=== PATIENT | male | born 1970 | race Caucasian/White ===

== ENCOUNTER → 2020-09-18 | Day surgery (SDC) | payer MEDICAID ==
[~2020-09-18] MED LIST: FentaNYL CITRATE PF 100 MCG/2 ML VIAL IVP PRN; HYDROmorphone 2 MG/ML VIAL IVP PRN; MEPERIDINE-PF 25 MG/ML VIAL IVP PRN; OXYGEN THERAPY IH SCH; PROPOFOL 1% 20 ML VIAL IVP ONE; SODIUM CHLORIDE 0.9% 1,000 ML IV ONE; SODIUM CHLORIDE 0.9% 1,000 ML ONE
== END | disposition home or self-care (01) ==
LOC: SURGERY 10:46
PROVIDERS: ATTEND Specialist
DX: R93.3 Abnormal findings on diagnostic imaging of other parts of digestive tract (principal); K31.89 Other diseases of stomach and duodenum; K29.70 Gastritis, unspecified, without bleeding; Z72.89 Other problems related to lifestyle; Z98.890 Other specified postprocedural states
CPT/HCPCS: 43239; 88305; 88312; 88313; C1769; J2704; J7030

== ENCOUNTER 2020-09-27 08:13 | Day surgery (SDC) | payer MEDICAID ==
[2020-09-26 14:22] LABS: COVID AG,FIA SOURCE NASOPHARYNGEAL
[~2020-09-27] VITALS: Ht 165.1 cm; Wt 75.0 kg
[~2020-09-27 08:13] MED LIST changes: -FentaNYL CITRATE PF 100 MCG/2 ML VIAL IVP PRN; -HYDROmorphone 2 MG/ML VIAL IVP PRN; -MEPERIDINE-PF 25 MG/ML VIAL IVP PRN; -OXYGEN THERAPY IH SCH; -PROPOFOL 1% 20 ML VIAL IVP ONE
[2020-09-27] MEDS ORDERED: PROPOFOL 1% 20 ML VIAL IVP ONE (08:14)
[2020-09-27] MEDS ORDERED: LIDOCAINE/PF 2% 5 ML VIAL IM ONE (08:14)
[2020-09-27] MEDS ORDERED: OXYGEN THERAPY IH SCH (20:00)
== END 2020-09-27 11:25 | disposition home or self-care (01) ==
LOC: SURGERY 08:13
PROVIDERS: ATTEND Specialist
DX: K62.1 Rectal polyp (principal); Z98.890 Other specified postprocedural states; Z79.899 Other long term (current) drug therapy; E66.9 Obesity, unspecified; Z82.49 Family history of ischemic heart disease and other diseases of the circulatory system; Z80.42 Family history of malignant neoplasm of prostate; R93.3 Abnormal findings on diagnostic imaging of other parts of digestive tract
CPT/HCPCS: 45385; 87426; C1769; C9803; J2704; J3490; J7030